=== PATIENT | female | born 1955 | race Caucasian/White ===

== ENCOUNTER 2020-08-05 10:37 | Emergency (ER) | payer BC ==
[2020-08-05 11:16] LABS: #Basophils 0.1 thou/uL (0.0-0.2); #Lymphocytes 1.9 thou/uL (1.20-3.40); #Monocytes 0.4 thou/uL (0.11-0.59); #Neutrophils 6.8 thou/uL (1.40-6.50); %Basophils 1.4 % (0.0-1.0); %Eosinophils 0.4 % (0.0-10.0); %Lymphocytes 20.3 % (21.0-51.0); %Neutrophils 73.9 % (42.0-75.0); Hemoglobin 14.2 g/dL (12.0-16.0); Mean Corpuscular HGB CONC 31.9 g/dL (32.0-36.0); Mean Corpuscular Hemoglobin 28.2 pg (27.0-31.0); Mean Corpuscular Volume 88.3 fL (78.0-98.0); Mean Platelet Volume 5.8 fL (7.4-10.4); Platelet Count 316 thou/uL (130-400); Red Blood Cell (RBC) Count 5.03 mill/uL (4.20-5.40); White Blood Cell (WBC) Count 9.2 thou/uL (4.8-10.8)
--- NOTE | 2020-08-05 11:16 | CT ---
CT BRAIN WITHOUT CONTRAST: HISTORY: Right-sided weakness. COMPARISON: None. 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 No evidence of acute infarct, hemorrhage, midline s hift, or abnormal extraaxial fluid collections are seen. The ventricular size is appropriate and the basilar cisterns are patent. The bony calvarium is intact. The visualized paranasal sinuses and ma stoid air cells are well aerated. IMPRESSION: No CT evidence of acute intracranial process. POS: AH
--- NOTE | 2020-08-05 11:20 | RAD ---
RADIOGRAPH CHEST 1 VIEW: DATE: 08/05/2020 HISTORY: 65-year-old female with dyspnea FINDINGS: There are no airspace densities, pulmonary edema, pneumothorax, or cardiomegaly. The lateral costophr enic angles are sharp. IMPRESSION: No acute cardiopulmonary findings.
[2020-08-05 11:21] LABS: INR-International Normal Ratio 0.9; PTT 26.9 sec (22.9-36.1); Prothrombin Time 11.8 sec (12.0-14.7)
[2020-08-05 11:33] LABS: ALT (SGPT) 16 U/L (8-55); AST (SGOT) 17 U/L (5-34); Albumin 4.4 g/dL (3.4-4.8); Alkaline Phosphatase 86 U/L (40-110); Anion Gap 18 mmol/L (10-20); BUN (Urea Nitrogen) 10 mg/dL (9.8-20.1); Bilirubin, Total 0.5 mg/dL (0.2-1.2); CK (CPK) 77 U/L (29-168); Calc. Creatinine Clearance 0 mL/min (70-130); Calcium 9.8 mg/dL (7.8-10.44); Carbon Dioxide 23 mmol/L (23-31); Chloride 102 mmol/L (98-107); Estimated GFR-MDRD 69; Globulin 3.5 g/dL (2.4-3.5); Glucose 115 mg/dL (80-115); Protein, Total 7.9 g/dL (6.0-8.3); Sodium 139 mmol/L (136-145)
[2020-08-05] MEDS ORDERED: Aspirin Chewable 81 MG TAB ONE (12:02)
== END 2020-08-05 12:16 | disposition home or self-care (01) ==
LOC: MADERS 10:37
DX: I63.9 Cerebral infarction, unspecified (principal); I10 Essential (primary) hypertension; F17.210 Nicotine dependence, cigarettes, uncomplicated
CPT/HCPCS: 36416; 70450; 71045; 80053; 82550; 84443; 84484; 85025; 85610; 85730; 93005; 94760